=== PATIENT | female | born 1960 | race African-American/Black ===

== ENCOUNTER → 2016-11-07 | Outpatient (CLI) | payer OTHER ==
[~2016-11-07] MED LIST: ATORVASTATIN CA10 MG PO; BP MED; CHOLESTEROL MED; HEARTBURN RELIE75 M2 PO; HYDROCHLOROTHIA25 MG PO; LANSOPRAZOLE30 M2 DOB; LINZESS290 MCG PO; MOBIC PO; MUSCLE RELAXER; NAPROXEN PO; NAPROXEN500 M1 PO; NEXIUM PO; NEXIUM20 MG PO; OXYELITE PRO PO; PHENTERMINE PO; ZYRTEC10 M2 PO; Zantac
--- NOTE | ~2016-11-07 | CR61 ---
[facility] A Service of [facility] RADIOLOGY TEXT RESULTS PATIENT: DELBERT HOPKINS LOCATION: [facility] : 64 UNIT #: [id number] AGE: [address]: Andrew Hood MD SEX: F ORDER DR: [id number] [facility] [address] [place], [place] [address] [id number] O MR#: [id number] Acc #: [id number] NAME: DELBERT HOPKINS : 1960 SEX: F STUDY DATE/TIME: 11/07/2016 19:38 UNIT: [facility] ROOM: STUDY DESCRIPTION: CR Cervical Spine Min 5 Views Attending Physician: Andrew Hood M.D. Ordering Physician: Andrew Hood M.D. Primary Care Physician: Rafaela Good M.D. MEDICAL IMAGING REPORT This report is preliminary unless electronic signature is present EXAM Cervical spine series, 11/07/2016. HISTORY Cervicalgia. Pain, left shoulder numbness, tingling 1 month. No known injury neck upper. TECHNIQUE AP, lateral, open mouth odontoid, and lateral voluntary flexion and extension views of the cervical spine performed. This CT exam was performed with one or more of the following radiation dose reduction techniques: automatic exposure control, adjustment of mA and/or kV according to patient size, and iterative reconstruction. FINDINGS Alignment appears normal. No abnormal changes in alignment with voluntary flexion and extension. The vertebral body heights are normal. There is mild narrowing of the intervertebral disc space at the C6-C7 level. Facet joint relationships are normal. Prevertebral soft tissues remarkable. C1-C2 relationship normal. Odontoid process intact. Visualized upper bony thorax unremarkable. Lung apices clear. Scattered dental hardware. Patient missing some teeth. Dictated by... Ivan Boyd M.D. THIS IS AN ELECTRONICALLY VERIFIED REPORT Ivan Boyd M.D. at 11/08/2016 6:14 PM FREDRICK/rachel TD: 11/08/2016 14:42 [facility] A Service of [facility] & [facility] RADIOLOGY TEXT RESULTS PATIENT: DELBERT HOPKINS LOCATION: [facility] #: [id number] : 64 UNIT #: [id number] AGE: [address]: Andrew Hood MD SEX: F ORDER DR: TSERING #: [id number] MEDICAL IMAGING REPORT Page 1 of 1 COPY
== END | disposition home or self-care (01) ==
LOC: CRAD 18:53
DX: M54.2 Cervicalgia (principal)
CPT/HCPCS: 72050